=== PATIENT | female | born 1975 | race Caucasian/White ===

== ENCOUNTER 2016-10-10 05:38 | Inpatient (IN) | payer BC ==
[2016-10-08 15:42] LABS: HCG,QUAL RESULT NEGATIVE (NEGATIVE)
[2016-10-08 15:51] LABS: CALCIUM 8.7 mg/dL (8.4-11.0); CREATININE 0.75 mg/dL (0.55-1.30); POTASSIUM 4.4 mmol/L (3.5-5.1)
[~2016-10-10] VITALS: Ht 172.7 cm; Wt 79.4 kg
[2016-10-10] MEDS ORDERED: LR 1,000 ML IV.SOLN IV ONE (07:05)
[2016-10-10] MEDS ORDERED: PROPOFOL 200MG/ 20ML VIAL (DIPRIVAN) IV ONE (07:05)
[2016-10-10] MEDS ORDERED: SUCCINYLCHOLINE CHLORIDE 20 MG/ML(QUELICIN) IVP ONE (07:05)
[2016-10-10] MEDS ORDERED: DEXAMETHASONE SOD PHOSPHATE 4 MG/ML VIAL IVP ONE (07:05)
[2016-10-10] MEDS ORDERED: LIDOCAINE/EPI 1% 1:100000 20 ML VIAL INJ ONE (07:05)
[2016-10-10] MEDS ORDERED: NS IRRIG SOLN 1000 ML IR ONE (07:05)
[2016-10-10] MEDS ORDERED: fentaNYL CITRATE 250 MCG/5 ML AMP IV ONE (07:05)
[2016-10-10] MEDS ORDERED: MIDAZOLAM HCL 5 MG/5 ML VIAL IVP ONE (07:05)
[2016-10-10] MEDS ORDERED: ROCURONIUM BROMIDE 10 MG/ML (ZEMURON) IV ONE (07:05)
[2016-10-10] MEDS ORDERED: KETOROLAC TROMETHAMINE 30 MG VIAL IVP ONE (07:05)
[2016-10-10] MEDS ORDERED: SEVOFLURANE 15 MIN GAS INH ONE (07:05)
[2016-10-10] MEDS ORDERED: ONDANSETRON HCL 4 MG/2 ML VIAL IVP ONE (07:05)
[2016-10-10] MEDS ORDERED: DEXAMETHASONE SOD PHOSPHATE 4 MG/ML VIAL ONE (07:56)
[2016-10-10] MEDS ORDERED: LR 1,000 ML IV SCH (09:09)
[2016-10-10] MEDS ORDERED: MEPERIDINE HCL/PF 25 MG/ML DISP.SYRIN IVP PRN (09:15)
[2016-10-10] MEDS ORDERED: HYDROmorphone 2 MG/ML VIAL IVP PRN ×2 (09:15)
[2016-10-10] MEDS ORDERED: HYDROmorphone 1 MG INJ. 1 MG/ML AMPUL IVP PRN (09:15)
[2016-10-10] MEDS ORDERED: 0.45% NACL 1,000 ML IV SCH (11:28)
[2016-10-10] MEDS ORDERED: HYDROmorphone 2 MG/ML VIAL ONE (11:29)
[2016-10-10 11:39] LABS: ALBUMIN 3.3 g/dL (3.4-4.8); CALCIUM 8.5 mg/dL (8.4-11.0)
[2016-10-10 12:15] VITALS: BP_SYST 110
[2016-10-10 12:40] VITALS: BP_SYST 110
[2016-10-10] MEDS: MUPIROCIN 2% TOPICAL OINTMENT 22 GM TP SCH ×2 (15:00→20:37)
[2016-10-10] MEDS: HYDROcodone/ACETAMIN 5-325 MG TAB (NORCO/ VICODIN) PO PRN ×2 (15:49→15:50)
[2016-10-10] MEDS: KCL 20 mEq in 0.45% NS 1000 mL 1,000 ML IV SCH (16:24)
[2016-10-10 17:08] VITALS: BP_SYST 126
[2016-10-10 19:30] VITALS: BP_SYST 109
[2016-10-10 19:40] LABS: ALBUMIN 3.3 g/dL (3.4-4.8); CALCIUM 8.2 mg/dL (8.4-11.0)
[2016-10-10] MEDS: MORPHINE 2 MG/ML INJ. SYRINGE IVP PRN (19:51)
[2016-10-11] MEDS: ONDANSETRON HCL 4 MG/2 ML VIAL IVP PRN ×2 (00:26→04:31)
[2016-10-11] MEDS: MORPHINE 2 MG/ML INJ. SYRINGE IVP PRN ×3 (00:27→07:53)
[2016-10-11 00:33] VITALS: BP_SYST 105
[2016-10-11 04:38] VITALS: BP_SYST 106
[2016-10-11] MEDS: KCL 20 mEq in 0.45% NS 1000 mL 1,000 ML IV SCH ×2 (06:01→12:28)
[2016-10-11 08:00] VITALS: BP_SYST 112
[2016-10-11] MEDS: HYDROcodone/ACETAMIN 5-325 MG TAB (NORCO/ VICODIN) PO PRN ×2 (09:15→13:35)
[2016-10-11] MEDS: MUPIROCIN 2% TOPICAL OINTMENT 22 GM TP SCH (09:16)
[2016-10-11] MEDS ORDERED: DOCUSATE SODIUM 100 MG/10 ML UDC PO PRN (10:45)
[2016-10-11 11:40] LABS: ALBUMIN 3.1 g/dL (3.4-4.8); CALCIUM 7.4 mg/dL (8.4-11.0)
[2016-10-11] MEDS ORDERED: HYDR-1189 PO ×2 (12:28)
[2016-10-11] MEDS ORDERED: COLL100 PO (12:28)
[2016-10-11] MEDS ORDERED: BACTROBAN TP (12:28)
[2016-10-11 12:44] VITALS: BP_SYST 99
[2016-10-11 13:15] VITALS: BP_SYST 99
== END 2016-10-11 15:05 | disposition home or self-care (01) | DRG 627 ==
LOC: SMU 05:38 → STU 13:16
PROVIDERS: ADMIT Otolaryngology; ATTEND Otolaryngology
PROC: 4A11X4G Monitoring of Peripheral Nervous Electrical Activity, Intraoperative, External Approach (ICD-10-PCS; 2016-10-10)
PROC: 0GTK0ZZ Resection of Thyroid Gland, Open Approach (ICD-10-PCS; principal; 2016-10-10 07:30)
DX: E04.2 Nontoxic multinodular goiter (principal)
CPT/HCPCS: 36415; 80048; 82040-TC; 82310-TC; 84703; 87081; 88307; 93005; J0330; J1100; J1170; J1885; J2250; J2270; J2405; J2704; J3010; J3480; J7120